=== PATIENT | female | born 2000 | race Caucasian/White ===

== ENCOUNTER 2020-02-01 10:25 | Emergency (ER) | payer BC, SELFPAY ==
[2020-02-01 10:27] VITALS: BP 121/76; PULSE 77; RESP 19; TEMP 36.6; O2SAT 99; BMI 20.9
--- NOTE | 2020-02-01 10:49 | HMH.EDUTC ---
[facility] Disposition Clinical Impression: Migraine headache Qualifiers: Migraine type: unspecified Status migrainosus presence: without status migrainosus Intractability: not intractable Qualified Code(s): G43.909 - Migraine, unspecified, not intractable, without status migrainosus Disposition: Home, Self-Care Condition on Discharge: Good Instructions: DI for Migraine Additional Instructions: Return to [facility] or ER if not improving or symptoms worsen Referrals: Mary Jacob [Primary Care Provider] - Forms: Work/School Release Time of Disposition: 11:11 Medical Decision Making - Prasanna Inquiry Pt receiving controlled substance: No Vital Signs: 02/01/20 10:27 Temperature 97.8 F Temperature Source Oral Pulse Rate [Left Radial] 77 Respiratory Rate 19 Blood Pressure [Right Arm] 121/76 Blood Pressure Mean [Right Arm] 91 Blood Pressure Source [Right Arm] Automatic Cuff Blood Pressure Position [Right Arm] Sitting 02 Sat by Pulse Oximetry 99 Oxygen Delivery Method Room Air Orders (Tests/Meds): ED MEDICATIONS Discontinued Medications Generic Name Dose Route Start Last Admin Trade Name Snehal PRN Reason Stop Dose Admin Ketorolac Tromethamine 60 mg 02/01/20 10:55 Ketorolac 60mg/2ml Vial IM 02/01/20 10:56 ONCE ONE Promethazine HCl 12.5 mg 02/01/20 10:55 Promethazine Hcl 25mg/Ml 1ml Vial IM 02/01/20 10:56 ONCE ONE Sodium Chloride 25 ml 02/01/20 10:55 Sodium Chloride 0.9% 25ml Bag IV 02/01/20 10:56 ONCE ONE [facility] HPI - General Stated complaint: pretty heache, nausa Time Seen by Provider: 02/01/20 10:49 - History of Present Illness Provider Complaint: Headache, nausea, pain behind eyes X 1 week. History of seizures and migraines, but sumatriptan has not helped. She has been tired. Denies ear pain or sinus congestion. Has had a scratchy throat. No fever. No vomiting or diarrhea. No SOA. No loss of taste or smell. No known exposure to COVID19. Onset (ago): week(s) (1) Location: head Relieving factors: none Exacerbating factors: none Associated symptoms: headaches, malaise, nausea/vomiting Treatments prior to arrival: other (Imitrex) - Related Data Allergies Allergy/AdvReac Type Severity Reaction Status Date / Time azithromycin Allergy Verified 02/01/20 10:49 [facility] History - Hepatitis A Screen Attestation statement:: This patient has been screened for Hepatitis A risk factors. I have reviewed the patient's past medical history: Yes ROS Obtained: Yes All systems reviewed & no additional complaints - Constitutional Constitutional: Reports headache(s) - Gastrointestinal Gastrointestingal: Reports: nausea Physical Exam - General General appearance: alert, in no apparent distress - Head Head exam: atraumatic, normocephalic, normal inspection - Eye Eye exam: Present: normal appearance, PERRL, EOMI - ENT ENT exam: Present: normal exam, normal oropharynx, mucous membranes moist, TM's normal bilaterally, normal external ear exam - Neck Neck exam: Present: normal inspection, full ROM, trachea midline. Absent: meningismus, lymphadenopathy - Chest Chest inspection: Present: normal inspection, symmetric chest wall rise. Absent: tenderness - Respiratory Respiratory exam: Present: normal lung sounds bilaterally. Absent: respiratory distress - Cardiovascular Cardiovascular exam: Present: regular rate, normal rhythm. Absent: JVD - Abdominal Exam Abdominal exam: Present: soft, normal bowel sounds - Extremities Exam Extremities exam: Present: normal inspection, full ROM, normal capillary refill. Absent: calf tenderness - Neurological Exam Neurological exam: Present: alert, oriented X3 - Psychiatric Psychiatric exam: Present: normal affect, normal mood - Skin Skin exam: Present: warm, dry, intact, normal color - Lymphatic Lymphatic Findings: no adenopathy
[2020-02-01 11:33] VITALS: BP 121/76; PULSE 77; RESP 19; TEMP 36.6; O2SAT 99
== END 2020-02-01 11:35 | disposition home or self-care (01) ==
PROVIDERS: Emergency Provider Physician Assistant; PCP Family Medicine
DX: G43.909 Migraine, unspecified, not intractable, without status migrainosus (principal)
CPT/HCPCS: 96372; 99201